=== PATIENT | female | born 1990 | race Two or more races ===

== ENCOUNTER 2018-04-26 14:25 | Emergency (ER) | payer MEDICAID ==
[~2018-04-26] VITALS: Ht 162.6 cm; Wt 74.8 kg
[2018-04-26 14:46] LABS: Urine Bacteria FEW /hpf (None Seen); Urine Blood Negative /uL (Negative); Urine Mucus FEW (None Seen); Urine Specific Gravity 1.016 (1.001-1.035); Urine WBC 5 /hpf (0 - 5)
[2018-04-26] MEDS ORDERED: SODIUM CHLORIDE 0.9% 1,000 ML IV ONE (15:06)
[2018-04-26 15:35] LABS: Basophils # (auto) 0 uL; Eosinophils # (auto) 0 uL; Eosinophils % (auto) 0.2 % (0.0-7.0); Lymphocytes # (auto) 1.4 uL; Mean Corpuscular Hemoglobin 26.7 pg (28.0-32.0)
[2018-04-26 15:37] LABS: Basophils % (auto) 0.2 % (0.0-2.0); Hematocrit 36.6 % (36.0-46.0); Lymphocytes % (auto) 23.9 % (10.0-50.0); Mean Corpuscular Hgb Conc. 32.8 g/dL (32.0-36.0); Mean Corpuscular Volume 81.4 fL (80.0-100.0); Monocytes # (auto) 0.4 uL; Monocytes % (auto) 7.3 % (0.0-12.0); Neutrophils # (auto) 4.1 uL; Neutrophils % (auto) 68.4 % (37.0-80.0); Platelet Count (auto) 222 10^3/uL (140-450); Red Blood Cells 4.49 10^6/uL (4.0-5.20); Red Cell Distribution Width 16.7 % (11.8-14.3)
[2018-04-26] MEDS ORDERED: IOHEXOL 300 MG/ML 100ML BOTTLE IJ ONE (15:48)
[2018-04-26 15:52] LABS: Albumin 3.6 g/dL (3.4-5.0); BUN/Creatinine Ratio 12.7; Calcium 8.6 mg/dL (8.5-10.1); Magnesium 1.7 mg/dL (1.6-2.6); Potassium 3.6 mmol/L (3.5-5.1)
[2018-04-26 15:54] LABS: Bilirubin, Total 0.5 mg/dL (0.2-1.0); Total Protein 8.2 g/dL (6.4-8.2)
[2018-04-26 17:30] VITALS: BP 124/70
== END 2018-04-26 18:02 | disposition home or self-care (01) ==
LOC: ER 14:25
DX: K80.20 Calculus of gallbladder without cholecystitis without obstruction (principal); N83.202 Unspecified ovarian cyst, left side; K59.01 Slow transit constipation; K31.89 Other diseases of stomach and duodenum; K62.5 Hemorrhage of anus and rectum; Z90.49 Acquired absence of other specified parts of digestive tract
CPT/HCPCS: 36415; 71046; 74176; 80053; 81001; 81025; 83690; 83735; 84443; 84702; 85025; 99285; J7030

== ENCOUNTER 2023-06-11 09:20 | Day surgery (SDC) | payer MEDICAID ==
[2023-06-04 15:22] LABS: Basophils # (auto) 0 10 ^3/uL (0-0.2); Eosinophils # (auto) 0 10 ^3/uL (0-0.8); Hemoglobin 10.6 g/dL (12.2-16.2); Lymphocytes # (auto) 2.8 10 ^3/uL (0.4-5.4); Mean Corpuscular Volume 78.3 fL (80.0-100.0)
[2023-06-04 15:24] LABS: Basophils % (auto) 0.3 % (0.0-2.0); Eosinophils % (auto) 0.5 % (0.0-7.0); Hematocrit 33.7 % (36.0-46.0); Lymphocytes % (auto) 30.5 % (10.0-50.0); Mean Corpuscular Hemoglobin 24.6 pg (28.0-32.0); Mean Corpuscular Hgb Conc. 31.4 g/dL (32.0-36.0); Monocytes # (auto) 0.6 10 ^3/uL (0-1.3); Monocytes % (auto) 6.8 % (0.0-12.0); Neutrophils # (auto) 5.7 10 ^3/uL (1.6-8.6); Neutrophils % (auto) 61.9 % (37.0-80.0); Red Cell Distribution Width 16.1 % (11.8-14.3); White Blood Cell 9.2 10^3/uL (4.4-10.8)
[2023-06-04 15:29] LABS: Urine Bacteria NONE SEEN /hpf (None Seen); Urine Blood 2+ /uL (Negative); Urine Clarity HAZY (Clear); Urine Color Colorless (Yellow); Urine Mucus FEW (None Seen); Urine Protein, UAD Negative (Negative); Urine Specific Gravity 1.015 (1.001-1.035); Urine Urobilinogen Normal (Negative); Urine WBC 1 /hpf (0 - 5); Urine pH 5.5 (5.0-8.0)
[2023-06-04 15:38] LABS: INR 1.01 (0.9-1.15); Partial Thromboplastin Time 29.3 SEC (24.5-34.5); Prothrombin Time 10.6 sec (9.3-11.8)
[2023-06-04 15:50] LABS: Alanine Aminotransferase 12 U/L (7-40); Albumin 4.6 g/dL (3.2-4.8); Alkaline Phosphatase 82 U/L (46-116); Anion Gap 6 (5-15); Aspartate Aminotransferase 13 U/L (13-40); Bilirubin, Total 0.2 mg/dL (0.2-1.0); Calcium 9.3 mg/dL (8.5-10.1); Carbon Dioxide 28 mmol/L (20-30); Chloride 107 mmol/L (98-107); Glucose 96 mg/dL (74-106); Potassium 3.5 mmol/L (3.5-5.1); Sodium 141 mmol/L (136-145)
[2023-06-04 15:51] LABS: Total Protein 7.5 g/dL (5.7-8.2)
[2023-06-04 15:57] LABS: BUN/Creatinine Ratio 7.9 (10.0-20.0); Blood Urea Nitrogen < 5 mg/dL (9-23)
[~2023-06-11] VITALS: Ht 162.6 cm; Wt 85.7 kg
[2023-06-11] MEDS ORDERED: PROPOFOL 10 MG/ML 20 ML IV ONE (09:21)
[2023-06-11] MEDS ORDERED: BUPIVACAINE HCL 50 ML ONE (10:09)
[2023-06-11] MEDS ORDERED: EPINEPHrine HCL 1 MG/1 ML AMP ONE (10:09)
[2023-06-11] MEDS ORDERED: TRANEXAMIC ACID 10 ML ONE (10:09)
[2023-06-11] MEDS ORDERED: ceFAZolin 2 GM/D5W100ml 100 ML IV ONE (10:19)
[2023-06-11] MEDS ORDERED: MEPERIDINE HCL (25 MG/ML) 1ML VIAL ONE (10:52)
[2023-06-11] MEDS ORDERED: MIDAZOLAM HCL 2MG/2ML 2ml VIAL (1mg/ml) ONE (10:53)
[2023-06-11] MEDS ORDERED: fentaNYL CITRATE 100 MCG/2 ML VL ONE (10:53)
[2023-06-11] MEDS ORDERED: LABETALOL HCL 5 MG/ML 4ML SYRINGE IV PRN (12:00)
[2023-06-11] MEDS ORDERED: KETOROLAC TROMETH 30 MG/ML 1ML VIAL IV ONE (12:00)
[2023-06-11] MEDS ORDERED: HYDROmorphone HCL 2 MG/ML VL/or syr IV PRN (12:00)
[2023-06-11] MEDS ORDERED: ePHEDrine SULFATE 50 MG/ML AMP IV PRN (12:00)
[2023-06-11] MEDS ORDERED: ONDANSETRON HCL 4 MG/2 ML VIAL IV PRN (12:00)
[2023-06-11] MEDS ORDERED: MORPHINE SULFATE 4 MG/ML SYR/VIAL IV PRN (12:00)
[2023-06-11] MEDS ORDERED: fentaNYL CITRATE 100 MCG/2 ML VL IV PRN (12:00)
[2023-06-11] MEDS ORDERED: MIDAZOLAM HCL 2MG/2ML 2ml VIAL (1mg/ml) IV PRN (12:00)
[2023-06-11] MEDS ORDERED: DexAMETHasone SOD PHOS 10MG/1ML VIAL INJ ONE (12:17)
[2023-06-11] MEDS ORDERED: ROCURONIUM 10MG/ML 10ML VIAL IV ONE (12:18)
[2023-06-11] MEDS ORDERED: SUGAMMADEX 200mg/2ml Vial (100MG/ML) IV ONE (12:18)
[2023-06-11] MEDS ORDERED: ONDANSETRON HCL 4 MG/2 ML VIAL ONE (12:18)
[2023-06-11 12:47] VITALS: RESP 21; TEMP 96.9; O2SAT 100
[2023-06-11 13:40] VITALS: BP 133/76; PULSE 79; RESP 15; O2SAT 97
== END 2023-06-11 14:40 | disposition home or self-care (01) ==
LOC: SUR 09:20
PROVIDERS: ATTEND Orthopaedic Surgery Sports Medicine
DX: M75.111 Incomplete rotator cuff tear or rupture of right shoulder, not specified as traumatic (principal); S46.111A Strain of muscle, fascia and tendon of long head of biceps, right arm, initial encounter; S43.431A Superior glenoid labrum lesion of right shoulder, initial encounter; M75.51 Bursitis of right shoulder; X58.XXXA Exposure to other specified factors, initial encounter; Y93.89 Activity, other specified; Y92.89 Other specified places as the place of occurrence of the external cause; Y99.8 Other external cause status
CPT/HCPCS: 29827; 36415; 80053; 81001; 81025; 85025; 85610; 85730; C1713; J0171; J1100; J2175; J2250; J2405; J2704; J3010; J3490; A4565

== ENCOUNTER 2024-05-25 08:09 | Day surgery (SDC) | payer MEDICAID ==
[~2024-05-25] VITALS: Ht 162.6 cm; Wt 85.7 kg
[~2024-05-25 08:09] MED LIST: HYDR-4902 PO; IBUP-1454 PO
[2024-05-25] MEDS ORDERED: PHENYLEPHRINE HCL 10 MG/ML VL IV ONE (08:10)
[2024-05-25] MEDS ORDERED: ceFAZolin 2 GM/D5W100ml 100 ML IV ONE (09:40)
[2024-05-25] MEDS ORDERED: BUPIVACAINE 0.25% INJ 50ML VIAL ONE (10:00)
[2024-05-25] MEDS ORDERED: fentaNYL CITRATE 100 MCG/2 ML VL ONE ×2 (10:01→10:59)
[2024-05-25] MEDS ORDERED: MIDAZOLAM HCL 2MG/2ML 2ml VIAL (1mg/ml) ONE (10:02)
[2024-05-25] MEDS ORDERED: MEPERIDINE HCL (50 MG/ML) 1 ML VIAL ONE (10:02)
[2024-05-25] MEDS ORDERED: BUPIVACAINE HCL 0.25% P/F 10 ML VIAL ONE (10:08)
[2024-05-25] MEDS ORDERED: LIDOCAINE 1% HCL (LOCAL ANESTH.) INJ 20ML MDV ONE (10:08)
[2024-05-25] MEDS: BUPIVACAINE 0.25% INJ 50ML VIAL IJ ONE (10:16)
[2024-05-25] MEDS ORDERED: PROPOFOL 0 ML IV ONE (10:31)
[2024-05-25] MEDS ORDERED: PROPOFOL 10 MG/ML 20 ML IV ONE (10:33)
[2024-05-25 10:45] VITALS: TEMP 97.9; O2SAT 93
[2024-05-25] MEDS ORDERED: DexAMETHasone SOD PHOS 10MG/1ML VIAL INJ ONE ×2 (10:53→11:11)
[2024-05-25] MEDS: HYDROmorphone HCL 2 MG/ML VL/or syr IV PRN (10:54)
[2024-05-25] MEDS ORDERED: ePHEDrine SULFATE 50 MG/ML AMP IV PRN (11:00)
[2024-05-25] MEDS ORDERED: hydrALAZINE HCL 20 MG/ML VL IV PRN (11:00)
[2024-05-25] MEDS ORDERED: MIDAZOLAM HCL 2MG/2ML 2ml VIAL (1mg/ml) IV PRN (11:00)
[2024-05-25] MEDS ORDERED: MORPHINE SULFATE 4 MG/ML SYR/VIAL IV PRN (11:00)
[2024-05-25] MEDS ORDERED: KETOROLAC TROMETH 30 MG/ML 1ML VIAL IV ONE (11:00)
[2024-05-25] MEDS ORDERED: HYDROmorphone HCL 2 MG/ML VL/or syr ONE (11:56)
[2024-05-25 12:00] VITALS: BP 122/65; PULSE 93; RESP 18; O2SAT 95
[2024-05-25] MEDS: ONDANSETRON HCL 4 MG/2 ML VIAL IV ONE (12:26)
--- NOTE | 2024-05-28 06:12 | DVHOP2 ---
Operative Report - 2 Report Details Date: 05/25/24 Preop Diagnosis: Right trimalleolar ankle fracture/dislocation Postop Diagnosis: as above Surgeon: Jose Levine MD Criminal Intelligence Specialist: Kristy Batista NP Anesthesiologist: Bryon GRAVES Anesthesia: General Implant: ITS/ Ossio/ Arthrex Consent: The patient was informed of the risks and benefits of the procedure. These include but are not limited to complications of anesthesia, postoperative infection, incomplete relief of symptoms, recurrence of symptoms, damage to blood vessels, nerves and tendons, deep venous thrombosis, pulmonary embolism and possible need for repeat surgery in the future. Estimated Blood Loss: 5 cc Indications for Surgery: displaced right trimalleolar ankle fracture dislocation Name of Procedure Performed Open reduction internal fixation of right trimalleolar ankle fracture, fixation of syndesmosis, intraop fluoro Procedure Details Procedure Details: HISTORY OF PRESENT ILLNESS: Risks/benefits/options and alternatives were discussed in length. Risks associated with anesthesia, infection, damage to nerves and blood vessels, and bleeding or blood clots. Problems after ankle fracture surgery include ankle joint stiffness, weakness, need for further surgery and arthritis. Possible complications after ankle fracture surgery include infection and problems with healing. PROCEDURE: After all potential complications and risks as well as risks and benefits of the above-mentioned procedure was discussed at length with the patient and family, informed consent was obtained. The lower extremity was then confirmed with the operating surgeon, the patient, the nursing staff and Department of Anesthesia. The patient was then transferred to preoperative area in the Operative Suite and placed on the operating room table in supine position. At this time, the anesthesia was performed. All bony prominences were well padded at this time. A nonsterile tourniquet was placed on the left upper thigh of the patient. This was then removed and the left lower extremity was sterilely prepped and draped in the usual sterile fashion. The lower extremity was then elevated and exsanguinated using Esmarch and tourniquet was then placed to 250 mmHg. Next, after all bony and soft tissue landmarks were identified, a 3 cm longitudinal incision was made directly over the lateral mal on the Left ankle. A sharp dissection was carefully taken down to the level of bone taking care to protect the neurovascular structures. Once the bone was reached, the fractured site was identified. The bony ends were then opened and divided of all hematoma as well as excess periosteum within the fracture site. For the lateral side he had a posterior comminution with a distal diagonal fracture. With manual traction and manipulation with bone reduction clamps we were able to reduce patient fracture. Intraoperative fluoroscopy confirmed reduction. Syndesmotic tightrope placed. We then used a clamp to clamp A to P for post mal. We then directed A to P screws to capture posterior mal piece. Next Fluorsocpy was used to visualize the hardware placement as well as the fracture reduction appeared to be in good anatomic position, all hardware was in good position. There was lateralization of the so we placed a tightrope based on fluoro tightening. Again, Fluoro scan was brought in to confirm placement of the screws. They were in good overall position and there was no lateralization of the joint. At this time, each wound was copiously irrigated and suctioned dry. The wounds were then closed using #2-0 Vicryl suture in subcutaneous fashion followed by 3-0 nylon on the skin. A sterile dressing was applied consistent with Adaptic, 4x4s, Kerlix, and Webril. An ankle splint was then placed on the right lower extremity. The patient was transferred back to the [facility] and to the Postanesthetic Care Unit. The patient tolerated the p rocedure well. There were no complications. Postoperative Plan: 1. Strictly Non-weight bearing Left LE 2. Pain control - [place] 3. Strict elevation x 2 weeks 4. Crutches 5. Healing time for this ankle fracture is about 3-6 months. Typically NWB for 6 weeks followed by Partial WB 6. Follow up in my office in 2 weeks Condition Good Disposition Home JULIEN CESAR MD May 28, 2024 06:12
--- NOTE | 2024-06-01 12:10 | DVH ---
C-ARM FLUOROSCOPY: PROCEDURE: ORIF of the ankle FLUOROSCOPY TIME: 73 sec
== END 2024-05-25 12:44 | disposition home or self-care (01) ==
LOC: SUR 08:09
PROVIDERS: ATTEND Orthopaedic Surgery Adult Reconstructive Orthopaedic Surgery
DX: S82.851A Displaced trimalleolar fracture of right lower leg, initial encounter for closed fracture (principal); E66.9 Obesity, unspecified; G89.18 Other acute postprocedural pain; Z98.890 Other specified postprocedural states; X58.XXXA Exposure to other specified factors, initial encounter; Y93.89 Activity, other specified; Y92.89 Other specified places as the place of occurrence of the external cause; Y99.8 Other external cause status; Z98.891 History of uterine scar from previous surgery
CPT/HCPCS: 27822; 64445; 64447; C1713; J1100; J1171; J2003; J2175; J2250; J2371; J2405; J2704; J3010; J3490; 76000